=== PATIENT | female | born 1955 | race Caucasian/White ===

== ENCOUNTER → 2016-11-21 | Outpatient (CLI) | payer OTHER ==
[~2016-11-21] MED LIST: BENTYL10 MG PO; ESTROVEN MAX200 MCG PO; GLUCOSAMINE-CH1 EA33 PO; MACROBID100 MG PO; MAGNEBIND 4001 EACH PO; MOTRIN600 MG PO; PRILOSEC20 MG PO; PROZAC20 MG PO; TYLENOL PM PO; VITAMIN D1000 INTUN PO; ZOFRAN4 MG PO
== END | disposition home or self-care (01) ==
LOC: CDC 14:41
DX: I10 Essential (primary) hypertension (principal)
CPT/HCPCS: 93000

== ENCOUNTER 2016-11-29 06:41 | Day surgery (SDC) | payer OTHER ==
[~2016-11-29] VITALS: Ht 170.2 cm; Wt 70.2 kg
[~2016-11-29 06:41] MED LIST changes: +EFFEXOR XR150 MG PO; +ESTROVEN 155 M155 MG PO; +HYZAAR 50-121 TABLET PO; +LO-DOSE ASPIRIN81 M2 PO; +MAGNESIUM250 MG PO; +PROTONIX40 MG PO; +VITAMIN D32000 UNI1 PO
[2016-11-29 07:06] VITALS: BP 120/73
[2016-11-29 10:17] VITALS: BP 126/77
[2016-11-29 11:20] VITALS: BP 122/70
== END 2016-11-29 11:20 | disposition home or self-care (01) ==
LOC: SDC 06:41
PROC: 0UDB8ZX Extraction of Endometrium, Via Natural or Artificial Opening Endoscopic, Diagnostic (ICD-10-PCS; principal; 2016-11-29)
DX: D25.0 Submucous leiomyoma of uterus (principal); N84.0 Polyp of corpus uteri; F41.8 Other specified anxiety disorders; N39.3 Stress incontinence (female) (male); K21.9 Gastro-esophageal reflux disease without esophagitis; Z80.41 Family history of malignant neoplasm of ovary; Z80.3 Family history of malignant neoplasm of breast; Z82.49 Family history of ischemic heart disease and other diseases of the circulatory system; Z82.0 Family history of epilepsy and other diseases of the nervous system
CPT/HCPCS: 88305; J0690; J2250; J3010